=== PATIENT | female | born 1945 | race Caucasian/White ===

== ENCOUNTER 2024-02-04 18:21 | Emergency (ER) | payer MEDICARE, OTHER, SELFPAY ==
[2024-02-04 18:33] VITALS: BP 171/94; BMI 25.2
[2024-02-04 18:52] LABS: % Basophils 0.5 % (0-2); % Eosinophils 0.9 % (0-6); % Immature Granulocytes 0.2 % (0-0.5); % Lymphocytes 16.2 % (20.5-51.1); % Monocytes 8.1 % (1.7-9.3); % Neutrophils 74.1 % (42.2-75.2); Absolute Eosinophils 0.1 10^3/uL (0-0.7); Absolute Lymphocytes 1.4 10^3/uL (1.2-3.4); Absolute Monocytes 0.7 10^3/uL (0.1-0.6); Absolute Neutrophils 6.4 10^3/uL (1.4-6.5); Hematocrit 42.3 % (37.0-47.0); Hemoglobin 14.1 g/dL (12.0-16.0); Mean Corp Hgb Conc. 33.3 g/dL (33.0-37.0); Mean Corpuscular Hgb 29.2 pg (27.0-31.0); Mean Corpuscular Volume 87.6 fL (81.0-99.0); Nucleated Red Blood Cells % 0 %; Platelet Count 242 10^3/uL (130-400); Red Blood Cell Count 4.83 10^6/uL (4.20-5.40); Red Cell Dist. Width 12.8 % (11.5-14.5); White Blood Cell Count 8.6 10^3/uL (4.8-10.8)
[2024-02-04 19:04] LABS: INR 1.04; PT 13.7 Sec (11.4-14.6)
[2024-02-04 19:11] LABS: ALT (SGPT) 27 U/L (0-35); AST (SGOT) 25 U/L (14-36); Albumin 4.2 g/dl (3.5-5.0); Alkaline Phosphatase 106 U/L (38-126); Blood Urea Nitrogen 10 mg/dl (7-17); Calcium 9.7 mg/dl (8.4-10.2); Estimated Creatinine Clearance 52 ml/min; Glucose 93 mg/dl (70-99); Total Bilirubin 0.8 mg/dl (0.2-1.3); Total Protein 7.2 g/dl (6.3-8.2); eGFR > 60.00
[2024-02-04 19:24] LABS: Carbon Dioxide 29 mmol/L (22-30); Chloride 101 mmol/L (98-107); Potassium 3.1 mmol/L (3.5-5.1); Sodium 138 mmol/L (135-145)
--- NOTE | 2024-02-04 22:12 | ED.GENMED ---
History of Present Illness
General
Chief Complaint: Abdominal Symptoms
Source: patient
Exam Limitations: none
Time Seen by Provider: 02/04/24 21:18
Travel History
Have you had any contact with someone who has COVID-19?: No
Do you have any symptoms of coronavirus? Fever > 100 degrees, chills, cough, shortness of breath, sore throat, loss of taste or smell, muscle aches, or headache?: No
History of Present Illness
History of Present Illness:
This is a 78 year old female that comes in with c/o Diarrhea. States that she is concerned that she may have C-diff. States that she had stool done and the preliminary was negative. States that she was on antibiotics for 10 days that finished last
Thursday for a sinus infection. States that the diarrhea started a few days before she finished. States that yesterday it was terrible. Patient called the PCP and was told to stay on a clear liquid diet. States that she has some abd cramping,
occasional nausea with the diarrhea and a headache. Denies any fever, chills, chest pain, SOB, vomiting, dizziness, urinary burning.
Past History
Past History
ED Past Medical History: Cancer (Right breast Cancer), GERD, HTN, Hypercholesterolemia and Other (C-diff)
ED Past Surgical History: , Gynecological (D&C), Orthopedic and Other (Right mastectomy with reconstruction)
Social History
Tobacco: Non-smoker
Alcohol: None
Drug: None
Personal:
Living: with family
Review of Systems
Review of Systems
All Other Systems: ROS reviewed and negative except as documented in HPI and ROS
Constitutional: Reports no symptoms; Denies fever or chills
EENT: Reports no symptoms
Respiratory: Reports no symptoms; Denies cough or trouble breathing
Cardiac: Reports no symptoms; Denies chest pain
ABD/GI: Reports abdominal pain (Cramping), nausea (Occasional) and diarrhea; Denies vomiting
: Reports no symptoms; Denies dysuria, frequency or urgency
Musculoskeletal: Reports no symptoms
Skin: Reports no symptoms
Neurological: Reports headache; Denies dizzy
Psychiatric: Reports no symptoms
Phy Exam
General Physical Exam
General Presentation: well appearing and no apparent distress
General age: appears stated age
General Skin: warm and dry
General Habitus: elderly
General Mental: alert
General Hydration: appears well hydrated
ENT Exam
ENT Exam: TM's normal, pharynx normal and neck supple
Eye Exam
Eye Exam: EOMI
Cardiovascular Exam
Cardiovascular Exam: regular rate/rhythm and normal peripheral pulses
Pulmonary Exam
Pulmonary Exam: lungs clear, no respiratory distress, no rales, chest non tender, no crackles, no rhonchi, no wheezing and no cough
Gastrointestinal Exam
Gastrointestinal Exam: non tender, soft, no organomegaly, no pulsatile mass, non distended and other (Hyperactive bowel sounds)
Musculoskeletal Exam
Musculoskeletal Exam: full ROM and edema (Slight lower leg edema non pitting)
Skin Exam
Skin Exam: normal color, warm/dry, no rash and no petechia
Psychiatric Exam
Psychiatric Exam: normal mood/affect
Course
Orders/Labs/Results
Orders:
Orders
02/04/24 18:44
Type+Screen Urgent
Complete Blood Count/With Diff Urgent
Comprehensive Metabolic Panel Urgent
PTT Urgent
Prothrombin Time Urgent
Abnormal Lab Results
02/04/24
18:44
Absolute Monos (auto) 0.7 H 10^3/uL
(0.1-0.6)
Lymphocytes % 16.2 L %
(20.5-51.1)
Potassium 3.1 L mmol/L
(3.5-5.1)
02/04/24 18:44
02/04/24 18:44
Hypokalemia, Otherwise normal labs. PT 13.7 with INR 1.04, PTT 29.0
Vital Signs
Initial and Last Documented VS:
Initial Vital Signs
Temp Pulse Resp BP Pulse Ox
98.9 F 88 16 171/94 96
02/04/24 18:33 02/04/24 18:33 02/04/24 18:33 02/04/24 18:33 02/04/24 18:33
Last Documented Vital Signs
Temp Pulse Resp BP Pulse Ox
98.9 F 88 16 171/94 96
02/04/24 18:33 02/04/24 18:33 02/04/24 18:33 02/04/24 18:33 02/04/24 18:33
MDM/Problems Addressed
Differential Diagnosis Includes:
Enteritis, C-diff, Colitis
MDM/Problems Addressed:
This is a 78 year old female that comes in with c/o diarrhea. States that she has had diarrhea since finishing an antibiotic for a sinus infection. States that she did have a stool culture done and the preliminary was negative for C-diff. States
that the PCP told her to do a clear liquid diet yesterday which she has been doing. States that she is starving.
Explained to patient that her labs show her Potassium is slightly low. Offered to give patient potassium but she refused as stated that this caused her to have diarrhea in the past. Patient is non tender with palpation and the Culture for C-diff.
Explained to patient that this may be Enteritis and will go away on its own. Patient can use Imodium to help control the diarrhea. Stay away from Milk and milk products until the diarrhea stops. Banana's are binding and Chicken, rice and potatoes
are easily digested. Will give patient IV fluids and she is going to go home and wait for the finial results of the stool culture. Patient to return with any concerns.
Chronic conditions affecting care:
History of C-diff
Acute Exacerbation and/or Progression of Chronic Illness:
NA
*Pulse Oximetry
Patient hypoxic: no
*EKG
Interpreted by ED Provider?: NA
Rate: EKG- N/A
*Social Insurance Administrator Interpretation
Rate: Social Insurance Administrator- N/A
*Critical Care Note
Total Time (30-74mins, 75-104mins- exclusive of procedures): Not Applicable
ED Attending Note
-
Portions of this chart may have been created with voice recognition software.� Occasional wrong word or��sound alike� substitutions may have occurred due to the inherent limitations of voice recognition software.
Discharge Plan
Departure
Patient Disposition: Home (Routine Discharge)
Date of Disposition: 02/04/24
Time of Disposition: 22:26
Patient with high blood pressure during this ER visit?: Yes
Condition: Good
Covid-19: Not Applicable
Discharge Problem:
Diarrhea
Instructions: Diarrhea in teens and adults, BLOOD PRESSURE
Prescriptions:
No Action
multivitamin [Daily Multiple] 1 EACH tablet
1 ea PO DAILY
atorvastatin 40 MG tablet
40 mg PO QPM
ketotifen fumarate [Zaditor] 5 ML drops
5 ml OP BID
ondansetron HCl [Zofran] 8 MG tablet
8 mg PO PRN PRN (Reason: NAUSEA)
valsartan-hydrochlorothiazide 1 EACH tablet
1 ea PO HS
prochlorperazine maleate [Compazine] 10 MG tablet
10 mg PO PRN PRN (Reason: NAUSEA)
aspirin [Aspir-Low] 81 MG tablet,delayed release (DR/EC)
81 mg PO DAILY
cranberry 400 MG capsule
300 mg PO DAILY
dextran 70-hypromellose [Artificial Tears] 15 ML drops
1 drp OP QID
calcium carbonate-vitamin D3 [Oyster Shell Calcium-Vit D3] 500 MG tablet
1 tab PO DAILY
vovnvnrjdwi-N1-Nbinwzbzg serr [Osteo Bi-Flex (5-Loxin)] 1 EACH tablet
1 ea PO BID
docusate sodium [Colace] 50 MG capsule
100 mg PO DAILY
loratadine 10 MG tablet
10 mg PO .POST CHEMO
Protonix: 20 MG
1 tab PO DAILY
prednisone 50 MG tablet
50 mg PO DAILY Qty: 3 0RF
Referrals:
Saurabh Valero, DO [Family Provider] - Call in 1-3 days for appt
Activity Restrictions/Additional Instructions:
As discussed, your blood work shows that your Potassium is slightly low. Please try eating some banana's as they are binding and will help with your potassium. Please increase your water intake to 8-8oz glasses daily. You may try eating Chicken,
rice or potatoes as they are easily digested. Follow up with the family doctor for recheck and the results of your stool specimen. You may also try Imodium to help control the diarrhea. IF YOU HAVE FEVER, OR ANY OTHER CONCERNS PLEASE RETURN TO THE
EMERGENCY ROOM.
Interventions
Interventions:
*Risk Screen - Suicide Last Done: 02/04/24 18:33
*General Assessment Last Done: 02/04/24 21:07
*Neglect/Abuse Screening Last Done: 02/04/24 18:33
ED- Fall Risk Assessment Last Done: 02/04/24 18:33
*ED COVID-19 Vaccine History Last Done: 02/04/24 21:07
MB-Ptufgl-Wtozzavboi Assessment Last Done: 02/04/24 21:07
Discharge Date and Time
Print Language: LATVIAN
[2024-02-04] MEDS: NSS 500 IV (22:31)
[2024-02-04] MEDS: IMODIUM 2 MG PO (23:44)
[2024-02-04 23:48] VITALS: BP 125/85
== END 2024-02-04 23:55 | disposition home or self-care (01) ==
LOC: EMR 18:21
PROVIDERS: Emergency Medicine; EMERGENCY PHYSICIAN Emergency Medicine; FAMILY PHYSICIAN Family Medicine
DX: R19.7 Diarrhea, unspecified (principal); R51.9 Headache, unspecified; R11.0 Nausea; R10.9 Unspecified abdominal pain; I10 Essential (primary) hypertension
CPT/HCPCS: 99284; 96360; 80053; 85025; 85610; 85730; 86850; 86900; 86901